=== PATIENT | male | born 1950 | race Caucasian/White ===

== ENCOUNTER → 2019-11-29 14:54 | Outpatient (CLI) | payer MEDICARE, OTHER, SELFPAY ==
--- NOTE | ~2019-11-29 | XR_ITS ---
EXAMINATION: XR chest 2V DATE: 11/29/2019 15:23 INDICATION: Unspecified chronic bronchitis TECHNIQUE: PA and lateral views of the chest are obtained. COMPARISON: 01/06/2016 FINDINGS: There are airspace opacities of the lung bases, left greater than right. There is no pleura l effusion or pneumothorax. The cardiomediastinal silhouette is normal. The visualized bones and soft tissues are unremarkable. IMPRESSION: 1. Bibasilar airspace opacities which may reflect pneumonia or atelectasis. Reviewed, dictated and finalized at location A.
== END ==
PROVIDERS: PCP Internal Medicine; Visit Provider Internal Medicine
DX: J42 Unspecified chronic bronchitis (principal)
CPT/HCPCS: 71046

== ENCOUNTER → 2021-02-25 10:35 | Outpatient (CLI) | payer MEDICARE, SELFPAY ==
--- NOTE | ~2021-02-25 | US_ITS ---
EXAMINATION: US scrotum doppler EXAM DATE: 02/25/2021 11:13 INDICATION: Scrotal wall abscess, drained on antibiotics. TECHNIQUE: Multiple grayscale and Doppler images of the testicles and scrotum were obtained bilateral ly. There is no prior study for comparison. FINDINGS: No focal scrotal abscess. Punctate subcutaneous scrotal echogenic focus causing some shadow ing annotated right lateral area palpable abnormality. Nonspecific, could be calcification, tiny fore ign body or single punctate focus of gas. Right testicle measures 5.1 x 2.8 x 4.0 cm and is morphologically normal. Low resistance Doppler lena w confirmed. The epididymis is unremarkable. Small varicocele. Left testicle measures 5.2 x 2.8 x 3.1 cm and is morphologically normal. Low resistance Doppler flow confirmed. The epididymis is unremarkable. There is no hydrocele or varicocele. IMPRESSION: 1. Punctate scrotal subcutaneous echogenic focus. Nonspecific, could be calcification, tiny foreign body or single punctate focus of gas. 2. Small bilateral varicoceles. Reviewed, dictated and finalized at location A. RVISOR BLAST FURNACE IMPRESSION: 1. Punctate scrotal subcutaneous echogenic focus. Nonspecific, could be calcif ication, tiny foreign body or single punctate focus of gas. 2. Small bilateral varicoceles.
== END ==
DX: N49.2 Inflammatory disorders of scrotum (principal); I86.1 Scrotal varices; N50.89 Other specified disorders of the male genital organs
CPT/HCPCS: 76870; 93976

== ENCOUNTER 2021-06-03 13:00 | Outpatient (RCR) | payer MEDICARE, SELFPAY ==
[2021-03-12 14:52] VITALS: BMI 35.9
[2021-03-12 15:05] VITALS: BMI 35.9
== END 2021-06-10 11:17 | disposition home or self-care (01) ==
LOC: ANHDMC 13:00
DX: E11.65 Type 2 diabetes mellitus with hyperglycemia (principal); Z71.3 Dietary counseling and surveillance; Z71.89 Other specified counseling
CPT/HCPCS: 97802; 99199; G0108

== ENCOUNTER 2021-07-30 10:30 | Outpatient (RCR) | payer MEDICARE, SELFPAY | END 2021-09-23 09:59 | disposition home or self-care (01) | LOC: ANHDMC 10:30 | DX: E11.65 Type 2 diabetes mellitus with hyperglycemia (principal); Z71.89 Other specified counseling | CPT/HCPCS: G0108 ==

== ENCOUNTER 2021-10-29 10:29 | Outpatient (RCR) | payer MEDICARE, SELFPAY | END 2021-10-29 11:46 | disposition home or self-care (01) | LOC: ANHDMC 10:29 | DX: E11.65 Type 2 diabetes mellitus with hyperglycemia (principal); Z71.89 Other specified counseling | CPT/HCPCS: G0108 ==

== ENCOUNTER → 2022-04-17 09:55 | Outpatient (CLI) | payer MEDICARE, SELFPAY ==
--- NOTE | ~2022-04-17 | MR_ITS ---
MRI of the right shoulder Technique: Axial proton-density fat-sat images, coronal proton density fat-sat and T2 fat-sat images, and sagittal T1-weighted and T2 fat-sat images were acquired. Clinical History: Rotator cuff tear Findings: There is moderate to severe AC joint degenerative change. Moderate to large subacromial spu r present. Coracoclavicular, coracoacromial, and coracohumeral ligaments appear intact. There are complete, full-thickness tears of the supraspinatus and infraspinatus tendons, which are re tracted to the superior aspect of the humeral head. Fluid-filled gap measures approximately 3.7 x 4.5 cm in extent. Subscapularis tendon is intact with minimal tendinosis. Tendon of the long head of the biceps is intact. Suspected subtle superior labral tear present. No definite anterior or posterior extension. Inferior glenohumeral ligament is intact. No degenerative change or effusion of the glenohumeral join t. No muscle atrophy or edema identified. Impression: Complete, full-thickness tears of the supraspinatus and infraspinatus tendons, with large gap and ret raction, as detailed above. Suspected subtle superior labral tear. No anterior or posterior extension identified. Moderate to advanced AC joint degenerative change. Reviewed, dictated and finalized at location . MANAGER Impression: Complete, full-thickness tears of the supraspinatus and infraspinatus tendons, with large gap and retraction, as detailed above. Suspected subtle superior labral tear. No anterior or posterior extension ident ified. Moderate to advanced AC joint degenerative change.
== END ==
PROVIDERS: PCP Family Medicine; Visit Provider Family Medicine
DX: M75.121 Complete rotator cuff tear or rupture of right shoulder, not specified as traumatic (principal); M12.811 Other specific arthropathies, not elsewhere classified, right shoulder
CPT/HCPCS: 73221

== ENCOUNTER 2024-05-11 11:26 | Outpatient (CLI) | payer MEDICARE, SELFPAY ==
--- NOTE | ~2024-05-11 | CT_ITS ---
EXAMINATION: CT diagnostic chest wo con DATE: 05/11/2024 11:40 INDICATION: Personal history of nicotine dependence TECHNIQUE: Computed tomography (CT) of the chest was performed without intravenous contrast. The dose -length product was 185.50 mGy-cm. Automated exposure control and iterative reconstruction technique were employed. COMPARISON: None FINDINGS: Nonenlarged mediastinal lymph nodes are likely reactive. Heart size normal. There is athero sclerosis of the aorta and coronary arteries. No endobronchial lesions. No focal airspace consolidati on. No suspicious pulmonary nodules or masses. Mild thoracic spondylosis. No focal lytic or blastic l esions. IMPRESSION: 1. Lung-RADS category 1: Negative. Continue annual screening with noncontrast low-dose chest CT in 12 months. Reviewed, dictated and finalized at location A. IMPRESSION: 1. Lung-RADS category 1: Negative. Continue annual screening with noncontrast l ow-dose chest CT in 12 months.
== END 2024-05-11 11:27 | disposition home or self-care (01) ==
LOC: MICIMG 11:27
PROVIDERS: PCP Physician Assistant; Visit Provider Physician Assistant
DX: Z12.2 Encounter for screening for malignant neoplasm of respiratory organs (principal); Z87.891 Personal history of nicotine dependence
CPT/HCPCS: 71250

== ENCOUNTER 2024-12-29 14:48 | Outpatient (CLI) | payer MEDICARE, SELFPAY ==
--- NOTE | ~2024-12-29 | CT_ITS ---
EXAMINATION:CT chest high resolution wo al DATE: 12/29/2024 15:05 INDICATION: Abnormal PFTs and cough TECHNIQUE: Computed tomography (CT) of the chest was performed without intravenous contrast. The dose-length product (DLP) was 536.78 mGy-cm. COMPARISON: May 11, 2024 FINDINGS: Minimal bibasilar fibrotic changes, left greater than right, not significantly changed from the previous exam. No advanced interstitial lung changes or parenchymal disease identified. No consolidation effusion or pneumothorax. Central large airways are patent. Heart and great vessels appear stable and within normal limits of the coronary artery calcification and/or stenting. No acute process seen in the visualized portions of the upper abdomen. Degenerative changes throughout the bony thorax with no acute process seen. Note that extrathoracic soft tissues are not fully included within the [id number] due to size of patient. IMPRESSION: 1. Minimal fibrotic appearing changes; if PFTs show a restrictive pattern, test results could be associated with body habitus. 2. No acute intrathoracic process identified. 3. Continued follow-up low-dose annual screening chest CT recommended. Reviewed, dictated and finalized at location A. USER EXPERIENCE STRATEGIST
== END 2024-12-29 14:49 | disposition home or self-care (01) ==
LOC: MICIMG 14:49
PROVIDERS: PCP Physician Assistant; Visit Provider Internal Medicine Pulmonary Disease
DX: R94.2 Abnormal results of pulmonary function studies (principal); R05.3 Chronic cough
CPT/HCPCS: 71250